=== PATIENT | female | born 1985 | race Caucasian/White ===

== ENCOUNTER 2017-12-30 07:24 | Emergency (ER) | payer BC, OTHER ==
[2017-12-30 08:02] VITALS: BP 155/85
--- NOTE | 2017-12-30 17:54 | UC ---
Roscoe Wood Stephanie, scribed for Nahum Bella MD on 12/30/17 at 0819 . Throat Pain/Nasal Wing HPI - HPI Summary HPI Summary: The pt is a 32 y/o F presenting to with c/o sinus pain that began in the first week of december. Symptoms include green nasal discharge, post nasal drip, non-documented fever and SORENSON in the morning. The pt has been taking Mucinex with no improvement. - History of Current Complaint Chief Complaint: UCGeneralIllness Stated Complaint: SINUS CONGESTION Time Seen by Provider: 12/30/17 07:29 Hx Obtained From: Patient Hx Last Menstrual Period: 12/26/17 ?: No Onset/Duration: Gradual Onset, Lasting Weeks - 2, Still Present Severity: Mild Pain Intensity: 3 Pain Scale Used: 0-10 Numeric Associated Signs & Symptoms: Positive: Sinus Discomfort, Nasal Discharge, Fever - Allergies/Home Medications Allergies/Adverse Reactions: Allergies Allergy/AdvReac Type Severity Reaction Status Date / Time Sulfa (Sulfonamide Allergy Unknown Verified 12/30/17 08:04 Antibiotics) Reaction Details Home Medications: Home Medications Apremilast [Otezla] 30 mg PO BID 12/30/17 [History Confirmed 12/30/17] Guaifenesin/Pseudo 600/60(NF) [Mucinex D 600/60 (NF)] 12/30/17 [History] Levothyroxine Sodium 100 mcg PO DAILY 12/30/17 [History Confirmed 12/30/17] Montelukast Sodium TAB* [Singulair 10 MG TAB*] 10 mg PO DAILY 12/30/17 [History Confirmed 12/30/17] Venlafaxine ER (NF) [Effexor ER (NF)] 150 mg PO DAILY 12/30/17 [History Confirmed 12/30/17] metFORMIN* [Glucophage 500 MG TAB *] 500 mg PO BID 12/30/17 [History Confirmed 12/30/17] PMH/Surg Hx/FS Hx/Imm Hx Previously Healthy: No - Chronic sinusitis - Surgical History Surgical History: Yes Surgery Procedure, Year, and Place: ear tubes 1989; adenoids removed; R ankle reconstruction 2007 - Family History Known Family History: Positive: Hypertension - Social History Occupation: Employed Part-time Lives: With Family Alcohol Use: Occasionally Substance Use Type: None Smoking Status (MU): Current Some Day Smoker Amount Used/How Often: 5 cigarettes/ day Household Exposure Type: Cigarettes Review of Systems Constitutional: Fever Skin: Negative Eyes: Negative ENT: Nasal Discharge, Sinus Congestion, Sinus Pain/Tenderness Respiratory: Negative Cardiovascular: Negative Gastrointestinal: Negative Genitourinary: Negative Motor: Negative Neurovascular: Negative Musculoskeletal: Negative Neurological: Headache Is Patient Immunocompromised?: No All Other Systems Reviewed And Are Negative: Yes Physical Exam - Summary Physical Exam Summary: VITAL SIGNS: Reviewed. GENERAL: Patient is a well developed and nourished F who is lying comfortable in the stretcher. Patient is not in any acute respiratory distress. positive maxillary sinus pressure R more than L HEAD AND FACE: Normocephalic EYES: PERRLA, EOMI x 2. EARS: Hearing grossly intact. MOUTH: Oropharynx within normal limits.pharynx erythematous NECK: Supple, trachea is midline, no lymphadenopathy, no JVD, no carotid bruit. CHEST: Symmetric, no tenderness at palpation LUNGS: Clear to auscultation bilaterally. No wheezing or crackles. CVS: Regular rate and rhythm, S1 and S2 present, no murmurs or gallops appreciated. ABDOMEN: Soft, non-tender. Bowel sounds are normal. No abdominal abnormal pulsations. EXTREMITIES: Full ROM in all major joints, no edema, no cyanosis or clubbing. NEURO: Alert and oriented x 3. No acute neurological deficits. Speech is normal and follows commands. SKIN: Dry and warm Triage Information Reviewed: Yes Vital Signs: Initial Vital Signs Temp 98.3 F 12/30/17 07:55 Pulse 80 12/30/17 07:55 Resp 16 12/30/17 07:55 BP 155/85 12/30/17 07:55 Pulse Ox 100 12/30/17 07:55 Vital Signs Reviewed: Yes Throat Pain/Nasal Course/Dx - Course Course Of Treatment: The pt is a 32 y/o F presenting to with c/o sinus pain that began in the first week of december. Symptoms include green nasal discharge, post nasal drip, non-documented fever and SORENSON in the morning. The pt has been taking Mucinex with no improvement. She will treated as Sinusitis with antibiotics. Patient was instructed to return to the urgent care or go to ER immediately if any of the symptoms return or worsens. Plan of care was discussed with the patient, and patient understands and agrees. All questions were answered to patient satisfaction. There were no further complaints or concerns.The patient was found to have increased BP in UC. The patient will follow up with PCP for better control of BP. - Differential Dx/Diagnosis Differential Diagnosis/HQI/PQRI: Influenza, Laryngitis, Pharyngitis, Sinusitis, Tonsillitis Provider Diagnoses: sinusitis. elevated BP without dx HTN Discharge - Sign-Out/Discharge Documenting (check all that apply): Discharge - Discharge Plan Condition: Stable Disposition: HOME Prescriptions: Amoxicillin/Clavulanate TAB* [Augmentin TAB 875*] 875 mg PO BID #20 tab Patient Education Materials: Sinusitis (ED) Referrals: Khoi Oswald MD [Primary Care Provider] - Additional Instructions: Take medications as instructed Increase your fluid intake Return to the UC if symptoms worsen FOLLOW UP WITH YOUR PRIMARY CARE PROVIDER WITHIN ONE WEEK FOR HIGH BLOOD PRESSURE NOTED TODAY. - Billing Disposition and Condition Condition: STABLE Disposition: HOME The documentation as recorded by the Roscoe jean Stephanie accurately reflects the service I personally performed and the decisions made by , Nahum Bella MD.
== END 2017-12-30 08:15 | disposition home or self-care (01) ==
LOC: UCEAST 07:24
DX: J32.9 Chronic sinusitis, unspecified (principal); R03.0 Elevated blood-pressure reading, without diagnosis of hypertension; Z88.2 Allergy status to sulfonamides; Z72.0 Tobacco use
CPT/HCPCS: 99212; G0463

== ENCOUNTER 2018-07-11 16:17 | Emergency (ER) | payer BC ==
[2018-07-11 16:55] VITALS: BP 132/72
--- NOTE | 2018-07-11 18:48 | UC ---
Throat Pain/Nasal Wing HPI - HPI Summary HPI Summary: 33-year-old female presents with onset of right maxillary swelling today. She states for approximately one week she has been having nasal congestion and maxillary sinus pressure. States she has been using saline rinses twice a day without relief. Denies fever, chills, ear pain, trismus, dental pain, dysphagia , cough, shortness of breath, chest pain, dizziness, vertigo, abdominal pain, nausea, or vomiting. - History of Current Complaint Chief Complaint: UCGeneralIllness Stated Complaint: FACIAL SWELLING Time Seen by Provider: 07/11/18 18:09 Hx Obtained From: Patient Hx Last Menstrual Period: now Onset/Duration: Gradual Onset Pain Intensity: 0 - Allergies/Home Medications Allergies/Adverse Reactions: Allergies Allergy/AdvReac Type Severity Reaction Status Date / Time Sulfa (Sulfonamide Allergy Unknown Verified 07/11/18 16:55 Antibiotics) Reaction Details Home Medications: Home Medications Fluticasone HFA 110 mcg(NF) [Flovent HFA 110 mcg(NF)] 2 puff INH BID 07/11/18 [ History Confirmed 07/11/18] Fluticasone NASAL SPRAY 50MCG* [Flonase NASAL SPRAY 50MCG*] 1 spray INH DAILY [History Confirmed 07/11/18] PMH/Surg Hx/FS Hx/Imm Hx - Additional Past Medical History Additional PMH: psoriatic arthritis Endocrine History: Diabetes, Hypothyroidism Respiratory History: Asthma Psychological History: Depression - Surgical History Surgical History: Yes Surgery Procedure, Year, and Place: ear tubes 1989; adenoids removed; R ankle reconstruction 2007 - Family History Known Family History: Positive: Hypertension - Social History Occupation: Employed Full-time Lives: With Family Alcohol Use: Occasionally Substance Use Type: None Smoking Status (MU): Current Some Day Smoker Amount Used/How Often: 5 cigarettes/ day Household Exposure Type: Cigarettes Review of Systems Constitutional: Negative Skin: Negative Eyes: Negative ENT: Nasal Discharge, Sinus Congestion, Sinus Pain/Tenderness Respiratory: Negative Cardiovascular: Negative Is Patient Immunocompromised?: Yes All Other Systems Reviewed And Are Negative: Yes Physical Exam Triage Information Reviewed: Yes Appearance: Well-Appearing, No Pain Distress, Obese Vital Signs: Initial Vital Signs Temp 98.9 F 07/11/18 16:52 Pulse 92 07/11/18 16:52 Resp 12 07/11/18 16:52 BP 132/72 10/24/18 16:52 Pulse Ox 99 07/11/18 16:52 Vital Signs Reviewed: Yes Eyes: Positive: Conjunctiva Clear. Negative: Discharge ENT: Positive: Nasal congestion, TMs normal, Sinus tenderness - right maxillary , Uvula midline. Negative: Pharyngeal erythema, Nasal drainage, Tonsillar swelling, Tonsillar exudate, Trismus, Muffled voice, Dental tenderness Dental: Positive: Gross Decay/Caries @ - #30 without gingival erythema, edema, or evidence of abscess Neck: Positive: Supple, Nontender, No Lymphadenopathy Respiratory: Positive: Lungs clear, Normal breath sounds, No respiratory distress Cardiovascular: Positive: RRR, No Murmur Neurological: Positive: Alert Skin Exam: Normal Throat Pain/Nasal Course/Dx - Course Course Of Treatment: 33-year-old female with onset of right axillary facial swelling today. She has had some nasal congestion and sinus pressure for approximately one week. Afebrile. Vital signs stable. Exam essentially unremarkable except for the right maxillary tenderness and swelling. She had no complaints of dental pain and I did not see any evidence of a dental abscess. She is diabetic and on Otezla for psoriatic arthritis therefore will treat her for an acute bacterial maxillary sinus infection with Augmentin twice a day 10 days. She is to continue symptomatic treatment using saline rinses and fluticasone nasal spray. Warning symptoms requiring immediate evaluation in the emergency room were reviewed. She verbalizes understanding and agrees with plan of care. - Differential Dx/Diagnosis Differential Diagnosis/HQI/PQRI: Sinusitis, Other - Dental abscess Provider Diagnoses: acute maxillary sinusitis Discharge - Sign-Out/Discharge Documenting (check all that apply): Patient Departure All imaging exams completed and their final reports reviewed: No Studies - Discharge Plan Condition: Stable Disposition: HOME Prescriptions: Amoxicillin/Clavulanate TAB* [Augmentin TAB 875*] 875 mg PO BID #20 tab Patient Education Materials: Sinusitis (ED) Referrals: Khoi Oswald MD [Primary Care Provider] - 1 Week (As scheduled.) Additional Instructions: I do not see any evidence of a dental abscess therefore I am going to treat your symptoms as a sinus infection. Start Augmentin 1 tab every 12 hours for 10 days. Take with food to avoid upset stomach. Be sure to finish the entire course even if you are feeling better. Continue using the saline rinses at least twice a day. I would recommend using an [id number] steroid nasal spray such as fluticasone (Flonase) 2 sprays each nostril once daily. May take an [id number] pain medications as acetaminophen (Tylenol) or ibuprofen (Advil, Motrin) according to directions as needed for any pain. Keep your appointment with your primary care provider in one week as scheduled. Seek immediate medical attention in the emergency room if you develop fever greater than 100.5 F, you have sudden severe headache, worsening of the facial swelling, you're unable to open your mouth, difficulty swallowing, difficulty breathing, or any worsening of symptoms. - Billing Disposition and Condition Condition: STABLE Disposition: Home
== END 2018-07-11 18:50 | disposition home or self-care (01) ==
LOC: UCEAST 16:17
DX: J01.00 Acute maxillary sinusitis, unspecified (principal); Z88.2 Allergy status to sulfonamides; Z72.0 Tobacco use
CPT/HCPCS: 99212; G0463

== ENCOUNTER 2018-09-20 08:04 | Emergency (ER) | payer BC ==
[2018-09-20 08:11] VITALS: BP 129/78
--- NOTE | 2018-09-20 08:24 | UC ---
Throat Pain/Nasal Wing HPI - HPI Summary HPI Summary: 33-year-old woman comes to clinic with a chief complaint of sore throat and body aches. This all started yesterday. She took some ibuprofen and that helped decrease the pain in the throat and the body aches. Sore throat was about a 5 out of 10 prior to the ibuprofen and said 2 out of 10 now. Minimal rhinorrhea no cough or chest congestion. - History of Current Complaint Chief Complaint: UCGeneralIllness Stated Complaint: SORE THROAT Time Seen by Provider: 09/20/18 08:16 Hx Last Menstrual Period: 09/16/18 Pain Intensity: 3 - Allergies/Home Medications Allergies/Adverse Reactions: Allergies Allergy/AdvReac Type Severity Reaction Status Date / Time Sulfa (Sulfonamide Allergy Unknown Verified 09/20/18 08:11 Antibiotics) Reaction Details PMH/Surg Hx/FS Hx/Imm Hx Previously Healthy: Yes Endocrine History: Diabetes Respiratory History: Asthma - Surgical History Surgical History: Yes Surgery Procedure, Year, and Place: ear tubes 1989; adenoids removed; R ankle reconstruction 2007 - Family History Known Family History: Positive: Hypertension - Social History Alcohol Use: Occasionally Substance Use Type: None Smoking Status (MU): Current Some Day Smoker Amount Used/How Often: 5 cigarettes/ day Household Exposure Type: Cigarettes Review of Systems All Other Systems Reviewed And Are Negative: Yes Constitutional: Positive: Negative Skin: Positive: Negative Eyes: Positive: Negative ENT: Positive: Sore Throat, Nasal Discharge, Sinus Congestion Respiratory: Positive: Negative Cardiovascular: Positive: Negative Gastrointestinal: Positive: Negative Motor: Positive: Negative Neurovascular: Positive: Negative Musculoskeletal: Positive: Negative Neurological: Positive: Negative Psychological: Positive: Negative Is Patient Immunocompromised?: No Physical Exam Triage Information Reviewed: Yes Appearance: Well-Appearing, No Pain Distress, Well-Nourished Vital Signs: Initial Vital Signs Temp 97.8 F 09/20/18 08:08 Pulse 90 09/20/18 08:08 Resp 17 09/20/18 08:08 BP 129/78 09/20/18 08:08 Pulse Ox 99 09/20/18 08:08 Vital Signs Reviewed: Yes Eye Exam: Normal Eyes: Positive: Conjunctiva Clear ENT: Positive: Pharyngeal erythema, Nasal congestion, Nasal drainage, TMs normal Neck exam: Normal Neck: Positive: Supple Respiratory: Positive: Lungs clear, Normal breath sounds, No respiratory distress Cardiovascular: Positive: RRR Musculoskeletal Exam: Normal Musculoskeletal: Positive: Strength Intact, ROM Intact Neurological Exam: Normal Neurological: Positive: Alert, Muscle Tone Normal Psychological Exam: Normal Psychological: Positive: Age Appropriate Behavior Skin Exam: Normal Throat Pain/Nasal Course/Dx - Course Course Of Treatment: Rapid strep and influenza are negative. Discussed symptomatic treatment. Patient will follow-up with primary care doctor if not completely improved or return here for further evaluation and care. - Differential Dx/Diagnosis Provider Diagnosis: Pharyngitis Discharge - Sign-Out/Discharge Documenting (check all that apply): Patient Departure All imaging exams completed and their final reports reviewed: No Studies - Discharge Plan Condition: Stable Disposition: HOME Patient Education Materials: Pharyngitis (ED) Referrals: Khoi Oswald MD [Primary Care Provider] - Additional Instructions: FOLLOW UP WITH YOUR DOCTOR IF NOT COMPLETELY IMPROVED. GET RECHECKED FOR ANY WORSENING OF YOUR CONDITION OR QUESTIONS OR CONCERNS. - Billing Disposition and Condition Condition: STABLE Disposition: Home
== END 2018-09-20 08:50 | disposition home or self-care (01) ==
LOC: UCEAST 08:04
DX: J02.9 Acute pharyngitis, unspecified (principal); E11.9 Type 2 diabetes mellitus without complications; J45.909 Unspecified asthma, uncomplicated; F17.210 Nicotine dependence, cigarettes, uncomplicated; Z88.2 Allergy status to sulfonamides
CPT/HCPCS: 87651; 99211; G0463